=== PATIENT | male | born 1975 | race Caucasian/White ===

== ENCOUNTER 2016-12-08 00:13 | Emergency (ER) | payer OTHER ==
--- NOTE | ~2016-12-08 | EGD ---
EGD REPORT [facility] [address] [id number] NAME: LARRY LOWRY : 75 STATUS : [facility] PAT#: [id number] AGE: 41 ADM/REG DATE : 12/08/16 MR#: [id number] REPORT SERV DATE: 12/21/16 DICTATED BY: DATE: REPORT STATUS : Draft TRANSCRIBED BY: [employer] DATE: 12/21/16 [facility] Patient Name: Larry Lowry Date of : 1975 Attending MD: YANIRA SKINNER MD Procedure Date No Time: 12/08/2016 Procedure: Upper GI endoscopy Indications: Dysphagia, Foreign body in the esophagus Referring MD: DARRYL ACOSTA MD Medicines: Monitored Anesthesia Care Complications: No immediate complications. Procedure: Pre-Anesthesia Assessment: - ASA Grade Assessment: II - A patient with mild systemic disease. After obtaining informed consent, the endoscope was passed under direct vision. Throughout the procedure, the patient's blood pressure, pulse, and oxygen saturations were monitored continuously. The GIF [id number] was introduced through the mouth, and advanced to the second part of duodenum. The upper GI endoscopy was accomplished without difficulty. The patient tolerated the procedure well. Findings: Mucosal changes including ringed esophagus and longitudinal furrows were found in the entire esophagus. Biopsies were taken with a cold forceps for histology. A guidewire was placed and the scope was withdrawn. Dilation was performed with a Savary dilator with no resistance at 51 Fr. The patient's previous sensation of (piece of chicken) was resolved. A small hiatus hernia was present. One superficial esophageal ulcer with no bleeding and no stigmata of recent bleeding was found 40 cm from the incisors. The lesion was 3 mm in largest dimension. The entire examined stomach was normal. There is no endoscopic evidence of hiatus hernia, inflammation or ulceration in the entire examined stomach. The examined duodenum was normal. There is no endoscopic evidence of inflammation, mucosal abnormalities or ulceration in the entire examined duodenum. The cardia and gastric fundus were normal on retroflexion. Impression: - Esophageal mucosal changes consistent with eosinophilic esophagitis. Biopsied. Dilated. - Hiatus hernia. - Non-bleeding esophageal ulcer. EGD REPORT [address] [address] NAME: LARRY LOWRY : [birth year] STATUS : [facility] PAT#: [id number] AGE: 41 ADM/REG DATE : 12/08/16 MR#: [id number] REPORT SERV DATE: 12/21/16 DICTATED BY: DATE: REPORT STATUS : Draft TRANSCRIBED BY: Lono DATE: 12/21/16 - Normal stomach. - Normal examined duodenum. Recommendation: - Patient has a contact number available for emergencies. The signs and symptoms of potential delayed complications were discussed with the patient. Return to normal activities tomorrow. Written discharge instructions were provided to the patient. - Full liquid diet today. - Discharge patient to home. - Use Protonix (pantoprazole) 40 mg PO daily. - Await pathology results. Procedure Code(s): --- Professional --- 94828, Esophagogastroduodenoscopy, flexible, transoral; with insertion of guide wire followed by passage of dilator(s) through esophagus over guide wire 98811, Esophagogastroduodenoscopy, flexible, transoral; with biopsy, single or multiple Diagnosis Code(s): --- Professional --- K20.9, Esophagitis, unspecified K44.9, Diaphragmatic hernia without obstruction or gangrene K22.10, Ulcer of esophagus without bleeding R13.10, Dysphagia, unspecified T18.108A, Unspecified foreign body in esophagus causing other injury, initial encounter CPT copyright 2013 [employer] [employer]. All rights reserved. The codes documented in this report are preliminary and upon certified professional coder review may be revised to meet current compliance requirements. YANIRA SKINNER MD 12/21/2016 1:34 PM This report has been signed electronically. Number of Addenda: 0 Note Initiated On: 12/08/2016 5:41 AM Scope Withdrawal Time 0 hours 0 minutes 0 seconds [address] [id number]
[2016-12-08 03:08] LABS: BASOPHILS 0.2 %; BASOPHILS ABSOLUTE 0.02 10/3/uL (0.0-0.16); EOSINOPHILS 1.5 %; EOSINOPHILS ABSOLUTE 0.16 10/3/uL (0.0-0.53); HEMATOCRIT 39.6 % (40.0-51.0); HEMOGLOBIN 13.7 g/dL (13.6-17.8); IMMATURE GRANULOCYTES 0.2 %; IMMATURE GRANULOCYTES ABSOLUTE 0.02 10/3/uL (0.0-0.11); LYMPHOCYTES 24.5 %; LYMPHOCYTES ABSOLUTE 2.59 10/3/uL (0.67-4.30); MEAN CORPUS HGB CONC 34.6 g/dL (32.0-36.0); MEAN CORPUSCULAR HEMOGLOB 31.1 pg (26.0-34.0); MEAN CORPUSCULAR VOLUME 89.8 fL (80-100); MEAN PLATELET VOLUME 10.2 fL (9.2-13.0); MONOCYTES 5.8 %; MONOCYTES ABSOLUTE 0.61 10/3/uL (0.21-1.20); NEUTROPHILS 67.8 %; NEUTROPHILS ABSOLUTE 7.18 10/3/uL (2.02-8.40); PLATELET COUNT 268 10/3/uL (150-400); RBC DISTRIBUTION WIDTH 12.7 % (12.0-16.0); RED CELL COUNT 4.41 10/6/uL (4.7-6.1)
[2016-12-08 03:09] LABS: ER CBC TAT 0 Hrs 07 Mins; MANUAL DIFF NO %; WHITE BLOOD CELLS 10.6 10/3/uL (4.5-10.5)
[2016-12-08 03:15] LABS: INTERNATIONAL NORMAL RATI 1.2 UNITS (-); PARTIAL THROMBO TIME 27.5 SEC (22.5-37.2); PROTIME (NOT ORD) 14.8 SEC (12.0-14.5)
[2016-12-08 03:23] LABS: BUN (BLOOD UREA NITROGEN) 13 MG/DL (6-23); CALCIUM, SERUM 8.8 MG/DL (8.5-10.4); CHLORIDE, SERUM 106 MMOL/L (96-112); CO2 (CARBON DIOXIDE) 30 MMOL/L (24-34); CREATININE 0.74 MG/DL (0.70-1.30); GFR AFRICAN AMERICAN 133 ML/MIN (>=60); GFR NON AFRICAN AMERICAN 115 ML/MIN (>=60); GLUCOSE, SERUM 93 MG/DL (60-99); POTASSIUM, SERUM 3.2 MMOL/L (3.5-5.3); SODIUM, SERUM 145 MMOL/L (135-148)
== END 2016-12-08 09:33 | disposition home or self-care (01) ==
LOC: ER 00:13
PROVIDERS: Emergency Medicine; Internal Medicine Gastroenterology
PROC: 0DB58ZX Excision of Esophagus, Via Natural or Artificial Opening Endoscopic, Diagnostic (ICD-10-PCS; principal; 2016-12-08 05:58)
PROC: 0D758ZZ Dilation of Esophagus, Via Natural or Artificial Opening Endoscopic (ICD-10-PCS; 2016-12-08 05:58)
DX: T18.128A Food in esophagus causing other injury, initial encounter (principal); R13.10 Dysphagia, unspecified; K22.10 Ulcer of esophagus without bleeding; K44.9 Diaphragmatic hernia without obstruction or gangrene; W45.8XXA Other foreign body or object entering through skin, initial encounter
CPT/HCPCS: 71010; 80048; 85025; 85610; 85730; 88305; 96374; 96375; 99284; J0330; J1610